=== PATIENT | male | born 1990 | race Caucasian/White ===

== ENCOUNTER 2020-03-12 13:03 | Emergency (ER) | payer SELFPAY ==
[~2020-03-12] VITALS: Ht 172.7 cm; Wt 86.2 kg
[2020-03-12 13:08] VITALS: BP 131/78
--- NOTE | 2020-03-12 13:11 | NUR ---
Pt c/o intermittent epigastric pain with n/v/d since 9 am this morning s/p ate seafood last night. Denies fever, chills, cough, sick contacts.
--- NOTE | 2020-03-12 13:11 | NUR ---
AMBULATED TO BED 5
--- NOTE | 2020-03-12 13:15 | NUR ---
Patient being evaluated by Dr. Stein at bedside.
[2020-03-12] MEDS ORDERED: LIDOCAINE VISCOUS 2% 20 ML UDC ONE (13:18)
[2020-03-12] MEDS ORDERED: DICYCLOMINE HCL LIQUID 10 MG/5 ML UDC ONE (13:18)
[2020-03-12] MEDS ORDERED: ALUMINUM HYD/MAG/SIMETHICONE 30 ML UDC ONE (13:18)
[2020-03-12] MEDS ORDERED: ONDANSETRON 4 MG ODT PO ONE (13:20)
[2020-03-12] MEDS ORDERED: DICYCLOMINE HCL LIQUID 20 MG, ALUMINUM HYD/MAG/SIMETHICONE 30 ML, LIDOCAINE VISCOUS 2% ... PO ONE ×3 (13:20)
[2020-03-12 13:32] VITALS: BP 125/75
--- NOTE | 2020-03-12 13:32 | NUR ---
Patient discharged with v/s stable. Written and verbal after care instructions given and explained. Patient alert, oriented and verbalized understanding of instructions. Ambulatory with to car. All questions addressed prior to discharge. ID band removed. Patient advised to follow up with PMD. Rx of Imodium, Zofran, & Motrin given. Patient educated on indication of medication including possible reaction and side effects. Opportunity to ask questions provided and answered.
== END 2020-03-12 13:32 | disposition home or self-care (01) ==
LOC: MED 13:03
DX: R10.13 Epigastric pain (principal); R11.2 Nausea with vomiting, unspecified; R19.7 Diarrhea, unspecified; F17.200 Nicotine dependence, unspecified, uncomplicated
CPT/HCPCS: 99283; Q0162

== ENCOUNTER 2020-03-28 17:30 | Emergency (ER) | payer SELFPAY ==
[~2020-03-28] VITALS: Ht 165.1 cm; Wt 86.2 kg
[2020-03-28 17:42] VITALS: BP 120/75
--- NOTE | 2020-03-28 17:52 | NUR ---
29 y/o male from home presents to ED for removal of sutures to left wrist. Pt states he had sutures placed approx 10 days ago. Skin warm, dry, of normal color. States 4/10 aching pain to suture site. VSS
--- NOTE | 2020-03-28 18:09 | NUR ---
Dr Dumont at chairside examining pt
--- NOTE | 2020-03-28 18:11 | NUR ---
Sutures removed, pt tolerated well.
[2020-03-28 18:14] VITALS: BP 120/75
--- NOTE | 2020-03-28 18:14 | NUR ---
Patient discharged with v/s stable. Written and verbal after care instructions given and explained. Patient verbalized understanding. Ambulatory with steady gait. All questions addressed prior to discharge. Advised to follow up with PMD.
== END 2020-03-28 18:14 | disposition home or self-care (01) ==
LOC: MED 17:30
DX: S61.412D Laceration without foreign body of left hand, subsequent encounter (principal); X58.XXXD Exposure to other specified factors, subsequent encounter
CPT/HCPCS: 99281